=== PATIENT | female | born 1955 | race Caucasian/White ===

== ENCOUNTER 2016-08-13 11:06 | Emergency (ER) | payer BC, MEDICARE ==
[2016-08-13 12:49] LABS: URINE BILIRUBIN NEGATIVE (NEGATIVE); URINE BLOOD NEGATIVE (NEGATIVE); URINE GLUCOSE (UA) NEGATIVE (NEGATIVE); URINE LEUKOCYTE ESTERASE NEGATIVE (NEGATIVE); URINE NITRITE NEGATIVE (NEGATIVE); URINE PROTEIN NEGATIVE (NEGATIVE); URINE UROBILINOGEN NORMAL (0-1 mg/dl)
[2016-08-13 12:51] LABS: URINE APPEARANCE CLEAR; URINE COLOR YELLOW
[2016-08-13] MEDS ORDERED: HYDROCODONE/ACETAMINOPHEN 5/325MG TABLET ONE (13:01)
[2016-08-13] MEDS ORDERED: ONDANSETRON 4 MG ODT TAB ONE (13:01)
--- NOTE | 2016-08-13 13:44 | CT ---
Exam Type: ABD/PELVIS W/O CON Date and Time: 08/13/2016 12:50 PM Clinical information: Pelvic pain and back pain. Comparison: 06/26/2014. Procedure: Imaging device: [employer] [address] scanner 1 mm axial images were obtained through the abdomen and pelvis. Stacked reconstructed 3, 4 and 5 mm images were photographed in the axial coronal and sagittal planes. No oral contrast was utilized for this examination. Exam: Without intravenous contrast. FINDINGS: Lung bases: Minimal dependent atelectasis is visualized. Liver: The liver appears to be of diffusely decreased attenuation when compared to the spleen, even on this noncontrasted examination. Spleen: The spleen is homogeneous and does not appear to be enlarged. Gallbladder: Calcified gallstones are identified within the lumen of the gallbladder. No adjacent inflammatory stranding is observed. Pancreas: Normal without enlargement or evidence of adjacent inflammatory changes. Adrenal glands: Normal without enlargement or evidence of adjacent inflammatory changes. Abdominal aorta: Dense atherosclerotic vascular calcification is seen with no focal aneurysm identified. Kidneys: The kidneys appear to be of symmetric size with no perinephric inflammatory stranding visualized. Mild prominence of the collecting systems is seen, right greater than left without calyceal dilatation. No evidence of an intrarenal or intraureteral calculus is visualized. Bowel structures: A few distal colonic diverticula are identified without associated inflammatory stranding. No evidence of obstruction is visualized. There is the suggestion of suture material involving the proximal transverse colon with evidence of testing a partial colectomy. Appendix: Likely surgically absent. Bladder: The bladder is of normal contour. No wall thickening or significant distention is observed. Hernia: No abdominal wall or inguinal hernia is visualized on this examination. Adenopathy: A few scattered nonenlarged retroperitoneal lymph nodes are visualized. Osseous structures: Multilevel lumbar degenerative changes are present with vacuum disc phenomenon at L4-5 and L5-S1. The appearance is similar to that seen on prior exam of 06/26/2014. Pelvic structures: No discrete pelvic abnormalities are visualized in this examination. IMPRESSION: 1. No evidence of an intrarenal or intraureteral calculus. 2. Findings most commonly associated with diffuse fatty infiltration of the liver. 3. Findings of a partial proximal colectomy. 4. Cholelithiasis. 5. Distal colonic diverticulosis without evidence to suggest diverticulitis. 6. Lumbar degenerative changes with vacuum disc phenomenon at L4-5 and L5-S1.
== END 2016-08-13 14:23 | disposition home or self-care (01) ==
LOC: ED 11:06
DX: R10.30 Lower abdominal pain, unspecified (principal); K50.90 Crohn's disease, unspecified, without complications; F17.210 Nicotine dependence, cigarettes, uncomplicated; Z79.899 Other long term (current) drug therapy
CPT/HCPCS: 81003; 74176; 99283 ×2; A9270 ×2